=== PATIENT | male | born 1960 | race Hispanic/Latino ===

== ENCOUNTER 2021-12-17 23:33 | Emergency (ER) | payer OTHER, SELFPAY ==
[~2021-12-17] VITALS: Ht 167.6 cm; Wt 90.7 kg
[2021-12-18] MEDS ORDERED: TAMS-1 PO (00:09)
[2021-12-18] MEDS ORDERED: CIPR-278 PO (00:09)
[2021-12-18 00:26] LABS: APPEARANCE,URINE CLEAR (CLEAR); BILIRUBIN,URINE NEGATIVE (NEGATIVE); COLOR,URINE YELLOW (YELLOW); GLUCOSE, URINE (UA) NEGATIVE (NEGATIVE); KETONES,URINE NEGATIVE (NEGATIVE); LEUKOCYTE ESTERASE ,URINE NEGATIVE (NEGATIVE); NITRATE,URINE NEGATIVE (NEGATIVE); OCCULT BLOOD,URINE NEGATIVE (NEGATIVE); PH,URINE 5.5 (5.0-8.0); PROTEIN,URINE NEGATIVE (NEGATIVE); UROBILINOGEN,URINE 0.2 mg/dL (0.2-1.0)
[2021-12-18 01:04] VITALS: BP 101/59
== END 2021-12-18 01:05 | disposition home or self-care (01) ==
LOC: EDH 23:33
DX: R33.9 Retention of urine, unspecified (principal)
CPT/HCPCS: 51702; 81003

== ENCOUNTER 2022-12-06 03:33 | Emergency (ER) | payer OTHER ==
[~2022-12-06] VITALS: Ht 157.5 cm; Wt 74.8 kg
[~2022-12-06 03:33] MED LIST: CIPR-278 PO; TAMS-1 PO
[2022-12-06 04:47] LABS: APPEARANCE,URINE CLEAR (CLEAR); BILIRUBIN,URINE NEGATIVE (NEGATIVE); COLOR,URINE COLORLESS (YELLOW); GLUCOSE, URINE (UA) NEGATIVE (NEGATIVE); KETONES,URINE NEGATIVE (NEGATIVE); LEUKOCYTE ESTERASE ,URINE NEGATIVE Leu/uL (NEGATIVE); NITRATE,URINE NEGATIVE (NEGATIVE); OCCULT BLOOD,URINE SMALL (NEGATIVE); PROTEIN,URINE NEGATIVE (NEGATIVE); UROBILINOGEN,URINE 0.2 mg/dL (0.2-1.0)
[2022-12-06 05:14] LABS: MUCUS,URINE RARE LPF (None Seen); SQUAMOUS EPITHELIAL CELL,UR RARE /HPF (0-2)
[2022-12-06 05:38] VITALS: BP 125/63
[2022-12-06] MEDS ORDERED: TAMS-1 PO (05:46)
[2022-12-06] MEDS ORDERED: TAMSULOSIN HCL 0.4 MG CAP.ER.24H PO ONE (06:00)
== END 2022-12-06 06:05 | disposition home or self-care (01) ==
LOC: EDH 03:33
DX: R33.9 Retention of urine, unspecified (principal)
CPT/HCPCS: 51702; 81001

== ENCOUNTER 2022-12-06 09:09 | Emergency (ER) | payer OTHER ==
[~2022-12-06] VITALS: Ht 162.6 cm; Wt 72.6 kg
[2022-12-06 09:13] VITALS: BP 145/81
== END 2022-12-06 13:43 | disposition left against medical advice (07) ==
LOC: EDH 09:09
DX: T83.038A Leakage of other urinary catheter, initial encounter (principal); R33.9 Retention of urine, unspecified
CPT/HCPCS: 51702; 81001